=== PATIENT | female | born 2000 | race Two or more races ===

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

== ENCOUNTER 2019-01-24 19:15 | Emergency (ER) | payer SELFPAY ==
[~2019-01-24] VITALS: Ht 157.5 cm; Wt 48.5 kg
[~2019-01-24 19:15] MED LIST changes: +DOCU-109 PO; -DOCU-27 PO; -OXYC-323 PO; +OXYC1TAB15 PO
[2019-01-24] MEDS ORDERED: IV NORMAL SALINE 1000ML BAG 1,000 ML IV ONE (20:15)
--- NOTE | 2019-01-24 20:15 | PHYS DOC ---
Past Medical History Past Medical History: No Pertinent History, UTI Past Surgical History: No Surgical History, Other Additional Past Surgical Histo: R foot Alcohol Use: None Drug Use: None Adult General Chief Complaint Chief Complaint: DIZZY/LIGHT HEADED HPI HPI Patient is a 18 yo female who complains of dizziness and lightheadedness since the end of January. She reports she has had several heavy, irregular periods , with her latest heavy period from December 24-January 23. She reports since the beginning of this last period she has felt lightheaded and dizzy when she stands. She reports symptoms only occur when standing or moving. She also reports that with the onset of symptoms she gets "hot flashes", change in vision , and "like she will pass out". She denies having passed out. She reports she went to OBGYN at [facility] who did blood work and ultrasound, however patient is unsure of the results of the work up (she thinks the OBGYN mentioned an ovarian cyst and wants another US). She also reports she has recently started having pain during intercourse. She admits to 3 days of white vaginal discharge but denies foul odor, dysuria, or hematuria. When asked why she presented to ED today after having symptoms for so long she reports she lives alone with two young children and is worried that if something happened to her the children would be unable to help. Patient reports she was told several years ago in [place] that she was anemic, however she denies any other chronic medical problems. She denies taking any medications/vitamins/supplements daily. She denies tobacco use, etoh use, or drug use. Review of Systems Review of Systems Constitutional: Denies fever or chills [] Eyes: Admits change in vision with standing. HENT: Denies nasal congestion or sore throat [] Respiratory: Denies cough or shortness of breath [] Cardiovascular: Denies chest pain or palpitations GI: Denies abdominal pain, nausea, vomiting, bloody stools or diarrhea [] : Denies dysuria or hematuria. Admits 3 days white vaginal dc w/o foul smell. Denies vaginal itching. Admits intermittent pain during intercourse. Musculoskeletal: Denies back pain or joint pain [] Integument: Denies rash or skin lesions [] Neurologic: Denies headache, focal weakness or sensory changes, Admits generalized weakness with standing. All other systems were reviewed and found to be within normal limits, except as documented in this note. Current Medications Current Medications Current Medications Medications (Trade) Dose Ordered Sig/Rayshawn Start Time Stop Time Status Last Admin Dose Admin Sodium Chloride 1,000 ml @ 1,000 mls/hr 1X ONCE 01/24/19 20:15 01/24/19 21:04 DC 01/24/19 20:15 1,000 MLS/HR Allergies Allergies Allergies Coded Allergies Type Severity Reaction Last Updated Verified No Known Drug Allergies 10/18/14 No Physical Exam Physical Exam Constitutional: Well developed, well nourished, no acute distress, non-toxic appearance. [] HENT: Normocephalic, atraumatic Eyes: PERRLA, EOMI, conjunctiva normal, no discharge. [] Neck: Normal range of motion Cardiovascular:Heart rate regular rhythm, no murmur [] Lungs & Thorax: Bilateral breath sounds clear to auscultation [] Abdomen: Soft, no tenderness, no masses, no pulsatile masses. [] Skin: Warm, dry, no erythema, no rash. [] Extremities: No tenderness, no cyanosis, no clubbing, ROM intact, no edema. [] Neurologic: Alert and oriented X 3, normal motor function, normal sensory function, no focal deficits noted. [] Psychologic: Affect normal, judgement normal, mood normal. [] Current Patient Data Vital Signs Vital Signs Date Time Temp Pulse Resp B/P (MAP) Pulse Ox O2 Delivery O2 Flow Rate FiO2 01/24/19 20:30 96 16 98 01/24/19 19:30 98.3 113/73 (86) 98.3 Lab Values Laboratory Tests Test 01/24/19 19:27 01/24/19 20:00 POC Urine HCG, Qualitative Hcg negative (Negative) White Blood Count 4.9 x10^3/uL (4.0-11.0) Red Blood Count 4.68 x10^6/uL (3.50-5.40) Hemoglobin 13.9 g/dL (12.0-15.5) Hematocrit 41.8 % (36.0-47.0) Mean Corpuscular Volume 89 fL (79-100) Mean Corpuscular Hemoglobin 30 pg (25-35) Mean Corpuscular Hemoglobin Concent 33 g/dL (31-37) Red Cell Distribution Width 13.2 % (11.5-14.5) Platelet Count 216 x10^3/uL (140-400) Neutrophils (%) (Auto) 70 % (31-73) Lymphocytes (%) (Auto) 19 % (24-48) L Monocytes (%) (Auto) 10 % (0-9) H Eosinophils (%) (Auto) 1 % (0-3) Basophils (%) (Auto) 0 % (0-3) Neutrophils # (Auto) 3.4 x10^3uL (1.8-7.7) Lymphocytes # (Auto) 0.9 x10^3/uL (1.0-4.8) L Monocytes # (Auto) 0.5 x10^3/uL (0.0-1.1) Eosinophils # (Auto) 0.0 x10^3/uL (0.0-0.7) Basophils # (Auto) 0.0 x10^3/uL (0.0-0.2) Urine Collection Type Unknown Urine Color Yellow Urine Clarity Cloudy Urine pH 8.0 Urine Specific [place] 1.025 Urine Protein Negative mg/dL (NEG-TRACE) Urine Glucose (UA) Negative mg/dL (NEG) Urine Ketones (Stick) Negative mg/dL (NEG) Urine Blood Negative (NEG) Urine Nitrite Negative (NEG) Urine Bilirubin Negative (NEG) Urine Urobilinogen Dipstick 0.2 mg/dL (0.2 mg/dL) Urine Leukocyte Esterase Negative (NEG) Urine RBC 3-5 /HPF (0-2) Urine WBC 0 /HPF (0-4) Urine Squamous Epithelial Cells Few /LPF Urine Amorphous Sediment Present /HPF Urine Bacteria 0 /HPF (0-FEW) Urine Mucus Mod /LPF Sodium Level 138 mmol/L (136-145) Potassium Level 3.6 mmol/L (3.5-5.1) Chloride Level 102 mmol/L (98-107) Carbon Dioxide Level 26 mmol/L (21-32) Anion Gap 10 (6-14) Blood Urea Nitrogen 9 mg/dL (7-20) Creatinine 0.5 mg/dL (0.6-1.0) L Estimated GFR (Cockcroft-Gault) 157.3 BUN/Creatinine Ratio 18 (6-20) Glucose Level 92 mg/dL (70-99) Calcium Level 9.1 mg/dL (8.5-10.1) Total Bilirubin 0.4 mg/dL (0.2-1.0) Aspartate Amino Transferase (AST) 21 U/L (15-37) Alanine Aminotransferase (ALT) 20 U/L (14-59) Alkaline Phosphatase 103 U/L (46-116) Total Protein 8.3 g/dL (6.4-8.2) H Albumin 4.4 g/dL (3.4-5.0) Albumin/Globulin Ratio 1.1 (1.0-1.7) Laboratory Tests 01/24/19 20:00 Laboratory Tests 01/24/19 20:00 EKG EKG [@2037; HR 85 BPM; sinus rhythm. intervals WNL. no ST elevation. Radiology/Procedures Radiology/Procedures [] Course & Med Decision Making Course & Med Decision Making Patient is a 18 yo female who presents with complaint of dizziness and lightheadedness for several weeks. She reports since November she has had menometrorrhagia and is following with OBGYN at [facility] for this. She reports latest period was from December 24-January 23 and since that period began she has felt dizziness/weak/presyncopal when standing. Vitals unremarkable. Physical exam unremarkable. Labs, including CBC, UA, CMP, WNL. EKG shows sinus rhythm with no ST elevation, areas of ischemia, or blocks. Patient received 1L NS. Discussed with patient that although we are not sure of the exact cause of her symptoms, we can be reasonably positive they are not acutely life threatening. Encouraged patient to keep appointment with OBGYN for menstruation concerns and to follow up with PCP for further symptoms. Also instructed the patient to return to ED if symptoms did not improve, worsened, or changed in nature. Patient voiced understanding and agreement. Dragon Disclaimer Dragon Disclaimer This electronic medical record was generated, in whole or in part, using a voice recognition dictation system. Departure Departure Impression: Primary Impression: Menorrhagia Disposition: HOME, SELF-CARE Condition: STABLE Referrals: UNKNOWN PCP NAME (PCP) MARQUITA HERNANDEZ MD Jan 24, 2019 20:15
[2019-01-24 20:19] LABS: BILIRUBIN,URINE NEGATIVE (NEG); CLARITY,URINE CLOUDY; COLOR,URINE YELLOW; NITRITE,URINE NEGATIVE (NEG); PROTEIN,URINE NEGATIVE (NEG-TRACE); UROBILINOGEN,URINE 0.2 mg/dL (0.2 mg/dL)
[2019-01-24 20:21] LABS: BASO % 0 % (0-3); EOS % 1 % (0-3); HEMATOCRIT 41.8 % (36.0-47.0); HEMOGLOBIN 13.9 g/dL (12.0-15.5); LYMPH # 0.9 x10^3/uL (1.0-4.8); LYMPH % 19 % (24-48); MEAN CORPUSCULAR HEMOGLOBIN 30 pg (25-35); MEAN CORPUSCULAR HGB CONC 33 g/dL (31-37); MEAN CORPUSCULAR VOLUME 89 fL (79-100); MONO # 0.5 x10^3/uL (0.0-1.1); MONO % 10 % (0-9); NEUT # 3.4 x10^3uL (1.8-7.7); NEUT % 70 % (31-73); PLATELET COUNT 216 x10^3/uL (140-400); RED BLOOD COUNT 4.68 x10^6/uL (3.50-5.40); RED CELL DISTRIBUTION WIDTH 13.2 % (11.5-14.5); WHITE BLOOD COUNT 4.9 x10^3/uL (4.0-11.0)
[2019-01-24 20:24] LABS: AMORPHOUS SEDIMENT,UR PRESENT /HPF; SQUAMOUS EPITHELIAL CELL,UR FEW /LPF
[2019-01-24 20:25] LABS: BACTERIA,URINE 0 /HPF (0-FEW); WBC,URINE 0 /HPF (0-4)
[2019-01-24 20:30] VITALS: BP 115/73
[2019-01-24 20:30] LABS: CALCIUM 9.1 mg/dL (8.5-10.1); CREATININE 0.5 mg/dL (0.6-1.0); GFR 157.3; POTASSIUM 3.6 mmol/L (3.5-5.1)
[2019-01-24 20:35] LABS: ALBUMIN 4.4 g/dL (3.4-5.0); ALBUMIN/GLOBULIN RATIO 1.1 (1.0-1.7); TOTAL BILIRUBIN 0.4 mg/dL (0.2-1.0); TOTAL PROTEIN 8.3 g/dL (6.4-8.2)
--- NOTE | 2019-01-26 13:16 | EKG ---
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
== END 2019-01-24 21:04 | disposition home or self-care (01) ==
LOC: ER 19:15
DX: N92.0 Excessive and frequent menstruation with regular cycle (principal); R53.1 Weakness; R42 Dizziness and giddiness
CPT/HCPCS: 36415; 80053; 81001; 81025; 85025; 93005; 96360; 99284; J7030

== ENCOUNTER 2020-07-24 16:58 | Emergency (ER) | payer SELFPAY ==
[~2020-07-24] VITALS: Ht 147.3 cm; Wt 50.0 kg
[2020-07-24 17:30] VITALS: BP 128/76
[2020-07-24 18:17] LABS: BILIRUBIN,URINE NEGATIVE (NEG); COLOR,URINE YELLOW; NITRITE,URINE NEGATIVE (NEG); PROTEIN,URINE NEGATIVE (NEG-TRACE); UROBILINOGEN,URINE 0.2 mg/dL (0.2 mg/dL)
[2020-07-24 18:20] LABS: CLARITY,URINE CLEAR
[2020-07-24 18:21] LABS: BACTERIA,URINE FEW /HPF (0-FEW); SQUAMOUS EPITHELIAL CELL,UR MANY /LPF
[2020-07-24 18:22] LABS: RBC,URINE RARE /HPF (0-2); WBC,URINE 0 /HPF (0-4)
[2020-07-24] MEDS ORDERED: IV NORMAL SALINE 1000ML BAG 1,000 ML IV ONE (18:30)
[2020-07-24] MEDS ORDERED: ONDANSETRON PF 4 MG/2 ML VIAL. IV ONE (18:45)
[2020-07-24] MEDS ORDERED: fentaNYL PF VIAL 100 MCG/2 ML VIAL IV ONE (18:45)
[2020-07-24 18:49] LABS: BASO % 0 % (0-3); EOS # 0.1 x10^3/uL (0.0-0.7); EOS % 2 % (0-3); HEMATOCRIT 39.1 % (36.0-47.0); HEMOGLOBIN 13.6 g/dL (12.0-15.5); LYMPH # 1.7 x10^3/uL (1.0-4.8); LYMPH % 25 % (24-48); MEAN CORPUSCULAR HEMOGLOBIN 31 pg (25-35); MEAN CORPUSCULAR HGB CONC 35 g/dL (31-37); MEAN CORPUSCULAR VOLUME 90 fL (79-100); MONO # 0.6 x10^3/uL (0.0-1.1); MONO % 8 % (0-9); NEUT # 4.5 x10^3/uL (1.8-7.7); NEUT % 65 % (31-73); PLATELET COUNT 219 x10^3/uL (140-400); RED BLOOD COUNT 4.37 x10^6/uL (3.50-5.40); RED CELL DISTRIBUTION WIDTH 13.8 % (11.5-14.5); WHITE BLOOD COUNT 6.9 x10^3/uL (4.0-11.0)
[2020-07-24 18:57] LABS: CALCIUM 8.7 mg/dL (8.5-10.1); CREATININE 0.5 mg/dL (0.6-1.0); GFR 154.3
[2020-07-24 19:02] LABS: ALBUMIN 4.1 g/dL (3.4-5.0); ALBUMIN/GLOBULIN RATIO 1.2 (1.0-1.7); MAGNESIUM 2.2 mg/dL (1.8-2.4); TOTAL BILIRUBIN 0.5 mg/dL (0.2-1.0); TOTAL PROTEIN 7.4 g/dL (6.4-8.2)
--- NOTE | 2020-07-24 19:53 | RAD ---
Ultrasound of the right upper quadrant of the abdomen 07/24/2020 CLINICAL HISTORY: Right upper quadrant abdominal pain. TECHNIQUE: A real-time ultrasound examination of the right upper quadrant of the abdomen was performed. Multiple images were obtained. FINDINGS: The gallbladder is well-distended. No gallstones are visualized. The gallbladder wall thickness is within normal limits. No pericholecystic fluid is seen. The common bile duct measures 2.5 mm in diameter which is within normal limits. The liver is normal in size and echogenicity. It measures 14.3 cm in length. Visualized portions of the pancreas and right kidney are within normal limits. No free fluid is seen. IMPRESSION: Negative study. Electronically signed by: Murali Rosado MD (07/24/2020 7:50 PM) [id number]
[2020-07-24] MEDS ORDERED: ONDA-84 PO (19:57)
--- NOTE | 2020-07-24 19:58 | PHYS DOC ---
Past Medical History Past Medical History: No Pertinent History, UTI Past Surgical History: No Surgical History, Other Additional Past Surgical Histo: R foot Smoking Status: Never Smoker Alcohol Use: None Drug Use: None General Adult EDM: Chief Complaint: BACK PAIN OR INJURY HPI: HPI: Patient is a 20 year old female who presents to the emergency department with complaints of right-sided back pain, and right upper quadrant abdominal pain since 3:00 this morning. She reports nausea with her abdominal pain and decreased appetite she denies any vomiting, or diarrhea. Patient states that she had a normal bowel movement today. She reports a history of constipation but denies any recent problems with constipation. She denies any dysuria, hematuria, increased urinary frequency, fever, cough, body aches, or fatigue. Reports her last menstrual cycle was 5 days ago and denies any concerns of . She currently rates her pain a 7 out of 10 on the pain scale, she denies any alleviating factors, the pain is worse if she eats something. She denies any radiation of the pain. Review of Systems: Review of Systems: Constitutional: Denies fever or chills. [] HENT: Denies nasal congestion or sore throat. [] Respiratory: Denies cough or shortness of breath. [] Cardiovascular: Denies chest pain or edema. [] GI: See HPI : Denies dysuria, see HPI [] Musculoskeletal: Denies joint pain; see HPI. [] Integument: Denies rash. [] Neurologic: Denies headache, focal weakness or sensory changes. [] Complete ROS is negative unless otherwise stated in the HPI. Heart Score: Risk Factors: Risk Factors: DM, Current or recent (<one month) smoker, HTN, HLP, family history of CAD, obesity. Risk Scores: Score 0 - 3: 2.5% MACE over next 6 weeks - Discharge Home Score 4 - 6: 20.3% MACE over next 6 weeks - Admit for Clinical Observation Score 7 - 10: 72.7% MACE over next 6 weeks - Early Invasive Strategies Current Medications: Current Medications Medications (Trade) Dose Ordered Sig/Rayshawn Start Time Stop Time Status Last Admin Dose Admin Fentanyl Citrate (Fentanyl 2ml Vial) 50 mcg 1X ONCE 07/24/20 18:45 07/24/20 18:46 DC 07/24/20 19:06 50 MCG Ondansetron HCl (Zofran) 4 mg 1X ONCE 07/24/20 18:45 07/24/20 18:46 DC 07/24/20 19:05 4 MG Sodium Chloride 1,000 ml @ 1,000 mls/hr 1X ONCE 07/24/20 18:30 07/24/20 19:29 DC 07/24/20 19:06 1,000 MLS/HR Allergies: Allergies: Allergies Coded Allergies Type Severity Reaction Last Updated Verified No Known Drug Allergies 10/18/14 No Physical Exam: PE: Constitutional: Well developed, well nourished, no acute distress, non-toxic rocco earance. [] HENT: Normocephalic, atraumatic, bilateral external ears normal, nose normal. [] Eyes: PERRLA, EOMI, conjunctiva normal, no discharge. [] Neck: Normal range of motion, no stridor. [] Cardiovascular:Heart rate regular rhythm Lungs & Thorax: Respirations even and unlabored, no retractions, no respiratory distress Abdomen: soft, right upper quadrant tenderness to palpation, no rebound tenderness, no guarding Back: R paraspinal thoracic TTP, no bony tenderness, no CVA tenderness Skin: Warm, dry, no erythema, no rash. [] Extremities: No cyanosis, ROM intact, no edema. [] Neurologic: Alert and oriented X 3, no focal deficits noted. [] Psychologic: Affect normal, judgement normal, mood normal. [] Current Patient Data: Labs: Laboratory Tests Test 07/24/20 18:00 07/24/20 18:15 07/24/20 18:45 Urine Collection Type Void Urine Color Yellow Urine Clarity Clear Urine pH 7.0 (<5.0-8.0) Urine Specific Keyser 1.020 (1.000-1.030) Urine Protein Negative mg/dL (NEG-TRACE) Urine Glucose (UA) Negative mg/dL (NEG) Urine Ketones (Stick) Negative mg/dL (NEG) Urine Blood Negative (NEG) Urine Nitrite Negative (NEG) Urine Bilirubin Negative (NEG) Urine Urobilinogen Dipstick 0.2 mg/dL (0.2 mg/dL) Urine Leukocyte Esterase Negative (NEG) Urine RBC Rare /HPF (0-2) Urine WBC 0 /HPF (0-4) Urine Squamous Epithelial Cells Many /LPF Urine Bacteria Few /HPF (0-FEW) Urine Mucus Marked /LPF POC Urine HCG, Qualitative Hcg negative (Negative) White Blood Count 6.9 x10^3/uL (4.0-11.0) Red Blood Count 4.37 x10^6/uL (3.50-5.40) Hemoglobin 13.6 g/dL (12.0-15.5) Hematocrit 39.1 % (36.0-47.0) Mean Corpuscular Volume 90 fL (79-100) Mean Corpuscular Hemoglobin 31 pg (25-35) Mean Corpuscular Hemoglobin Concent 35 g/dL (31-37) Red Cell Distribution Width 13.8 % (11.5-14.5) Platelet Count 219 x10^3/uL (140-400) Neutrophils (%) (Auto) 65 % (31-73) Lymphocytes (%) (Auto) 25 % (24-48) Monocytes (%) (Auto) 8 % (0-9) Eosinophils (%) (Auto) 2 % (0-3) Basophils (%) (Auto) 0 % (0-3) Neutrophils # (Auto) 4.5 x10^3/uL (1.8-7.7) Lymphocytes # (Auto) 1.7 x10^3/uL (1.0-4.8) Monocytes # (Auto) 0.6 x10^3/uL (0.0-1.1) Eosinophils # (Auto) 0.1 x10^3/uL (0.0-0.7) Basophils # (Auto) 0.0 x10^3/uL (0.0-0.2) Sodium Level 136 mmol/L (136-145) Potassium Level 4.0 mmol/L (3.5-5.1) Chloride Level 104 mmol/L (98-107) Carbon Dioxide Level 24 mmol/L (21-32) Anion Gap 8 (6-14) Blood Urea Nitrogen 11 mg/dL (7-20) Creatinine 0.5 mg/dL (0.6-1.0) L Estimated GFR (Cockcroft-Gault) 154.3 BUN/Creatinine Ratio 22 (6-20) H Glucose Level 105 mg/dL (70-99) H Calcium Level 8.7 mg/dL (8.5-10.1) Magnesium Level 2.2 mg/dL (1.8-2.4) Total Bilirubin 0.5 mg/dL (0.2-1.0) Aspartate Amino Transferase (AST) 15 U/L (15-37) Alanine Aminotransferase (ALT) 16 U/L (14-59) Alkaline Phosphatase 78 U/L (46-116) Total Protein 7.4 g/dL (6.4-8.2) Albumin 4.1 g/dL (3.4-5.0) Albumin/Globulin Ratio 1.2 (1.0-1.7) Lipase 141 U/L (73-393) Laboratory Tests 07/24/20 18:45 Laboratory Tests 07/24/20 18:45 Vital Signs: Vital Signs Date Time Temp Pulse Resp B/P (MAP) Pulse Ox O2 Delivery O2 Flow Rate FiO2 07/24/20 19:06 14 100 Room Air 07/24/20 17:30 98.8 88 128/76 (93) 98.8 EKG: EKG: [] Radiology/Procedures: Radiology/Procedures: PROCEDURE: ABDOMEN LTD Ultrasound of the right upper quadrant of the abdomen 07/24/2020 CLINICAL HISTORY: Right upper quadrant abdominal pain. TECHNIQUE: A real-time ultrasound examination of the right upper quadrant of the abdomen was performed. Multiple images were obtained. FINDINGS: The gallbladder is well-distended. No gallstones are visualized. The gallbladder wall thickness is within normal limits. No pericholecystic fluid is seen. The common bile duct measures 2.5 mm in diameter which is within normal limits. The liver is normal in size and echogenicity. It measures 14.3 cm in length. Visualized portions of the pancreas and right kidney are within normal limits. No free fluid is seen. IMPRESSION: Negative study. Electronically signed by: Murali Rosado MD (07/24/2020 7:50 PM) [id number] [] Course & Med Decision Making: Course & Med Decision Making Pertinent Labs and Imaging studies reviewed. (See chart for details) 20-year-old female presents emergency department with complaints of right-sided low back pain and right upper quadrant abdominal pain with nausea that began early this morning. CBC was unremarkable; CMP revealed a elevated BUN/creatinine ratio 22; glucose of 105 otherwise unremarkable; UA was unremarkable with a negative hCG. Patient was given a liter of normal saline, 4 mg of Zofran, and 50 mcg of fentanyl. She reported feeling better after these medications. Encouraged patient to return the emergency room if she developed fever or symptoms worsen. Otherwise follow-up with her primary care doctor for further evaluation of this pain. Prescription was written for Rosi, encouraged the patient to follow a clear liquid diet for 24 hours then advance diet as tolerated starting with bland foods. Patient verbalized an understanding of home care, medications, follow-up, and return to ED instructions and was in agreement with the plan of care. [] Scottie Disclaimer: Dragon Disclaimer: This electronic medical record was generated, in whole or in part, using a voice recognition dictation system. Departure Departure Impression: Primary Impression: Abdominal pain Qualified Codes: R10.11 - Right upper quadrant pain Disposition: HOME, SELF-CARE Condition: STABLE Referrals: NO PCP (PCP) Patient Instructions: Abdominal Pain (Nonspecific) Additional Instructions: Fill prescriptions and use them as directed. Recommend clear fluids for the next 24 hours. Then you may advance to bland foods such as bananas, rice, applesauce, and dry toast. Follow-up with your primary care doctor in the next 1-2 days. Return to the emergency room if your symptoms worsen. Scripts Ondansetron Hcl (ONDANSETRON HCL) 4 Mg Tablet 1 TAB PO PRN Q6HRS PRN for NAUSEA/VOMITING for 3 Days, #10 TAB 0 Refills Prov: ROGER OLMSTEAD APRN 07/24/20 Justicifation of Admission Dx: Justifications for Admission: Justification of Admission Dx: N/A ROGER OLMSTEAD APRN Jul 24, 2020 19:58
== END 2020-07-24 20:05 | disposition home or self-care (01) ==
LOC: ER 16:58
DX: R10.11 Right upper quadrant pain (principal); R11.0 Nausea; M54.5 Low back pain; Z98.890 Other specified postprocedural states
CPT/HCPCS: 36415; 76705; 80053; 81001; 81025; 83690; 83735; 85025; 96361; 96374; 96375; 99284; J2405; J3010; J7030